=== PATIENT | male | born 1970 | race Caucasian/White ===

== ENCOUNTER 2017-06-15 16:15 | Inpatient (IN) | payer MEDICAID ==
[2017-06-15] MEDS ORDERED: Sodium Chloride 0.9% 1,000 ML IV STA (16:37)
--- NOTE | 2017-06-15 16:48 | ED PDOC ---
HPI: Male Pain Time Seen by Provider: 06/15/17 16:29 Chief Complaint (Nursing): Abdominal Pain Chief Complaint (Provider): Pelvic Pain History Per: Patient History/Exam Limitations: no limitations Onset/Duration Of Symptoms: Days (x 6), Worse Since Current Symptoms Are (Timing): Still Present Quality Of Discomfort: Sharp ("sometimes"), Pressure Associated Symptoms: Fever, Chills, Nausea. denies: Vomiting, Diarrhea, Constipation, Urinary Symptoms Additional Complaint(s): 47 y/o male presents to the ED complaining of pelvic pain that started 6 days ago, and has been increasing since onset. Patient describes pain as pressure- like and sometimes sharp, radiating to the bilateral flank and down testicular area. The pain worsens if hes sitting and when he urinates. Patient reports nausea, subjective fever, chills, and sweats, but denies hematuria, diarrhea, or constipation. He has a history of kidney stone 5-6 years ago, but states that it did not present like this. He passed the stone without any further treatment necessary. He has not taken anything for the pain. PMD: Jhon Payne Past Medical History Reviewed: Historical Data, Nursing Documentation, Vital Signs Vital Signs: Last Vital Signs Temp 100.1 F H 06/15/17 16:22 Pulse 80 06/15/17 16:22 Resp 18 06/15/17 16:22 BP 139/87 06/15/17 16:22 Pulse Ox 96 06/15/17 16:22 - Medical History PMH: HTN Denies: Chronic Kidney Disease - Surgical History Surgical History: No Surg Hx - Family History Family History: States: Hypertension - Social History Current smoker - smoking cessation education provided: No - Home Medications Home Medications: Ambulatory Orders Medication Instructions Recorded Lisinopril 10 mg PO DAILY 10/30/14 Alprazolam 0.5 mg PO BID PRN 10/31/14 Ergocalciferol (Vitamin D2) 50,000 unit PO Q7D 10/31/14 [Vitamin D] - Allergies Allergies/Adverse Reactions: Allergies Allergy/AdvReac Type Severity Reaction Status Date / Time No Known Allergies Allergy Verified 10/30/14 11:38 Review of Systems ROS Statement: Except As Marked, All Systems Reviewed And Found Negative (and as per HPI) Constitutional: Positive for: Fever (subjective), Chills, Sweats Gastrointestinal: Positive for: Nausea. Negative for: Vomiting, Diarrhea, Constipation Genitourinary Male: Positive for: Other (pelvic pain). Negative for: Hematuria Physical Exam - Reviewed Nursing Documentation Reviewed: Yes Vital Signs Reviewed: Yes - Physical Exam Appears: Positive for: Non-toxic, In Acute Distress Head Exam: Positive for: ATRAUMATIC, NORMOCEPHALIC Skin: Positive for: Warm, Dry Eye Exam: Positive for: EOMI, PERRL ENT: Negative for: Pharyngeal Erythema, Tonsillar Exudate Neck: Positive for: Painless ROM, Supple Cardiovascular/Chest: Positive for: Regular Rate, Rhythm. Negative for: Murmur Respiratory: Positive for: Normal Breath Sounds. Negative for: Respiratory Distress Gastrointestinal/Abdominal: Positive for: Bowel Sounds, Soft, Tenderness ( suprapubic and BLQ). Negative for: Mass, Distended, Guarding, Rebound Back: Negative for: L CVA Tenderness, R CVA Tenderness - Laboratory Results Result Diagrams: 06/15/17 16:58 06/15/17 16:58 - ECG O2 Sat by Pulse Oximetry: 96 (RA) Pulse Ox Interpretation: Normal Medical Decision Making Medical Decision Making: Time: 16:37 Initial Impression: Pelvic pain Differential: renal calculus, cystitis, pyelonephritis, colitis, sepsis Initial Plan: --Blood gas --CMP --Urine dipstick --Flomax --Toradol IV --Tylenol --Blood culture --Urine culture --Urinalysis --CT Abdomen/Pelvis CT Abdomen/Pelvis FINDINGS: LOWER THORAX: Unremarkable. LIVER: Liver shows no evidence of focal mass or intrahepatic ductal dilatation. GALLBLADDER AND BILE DUCTS: Unremarkable. PANCREAS: Unremarkable. No gross lesion or ductal dilatation. SPLEEN: Unremarkable. ADRENALS: Unremarkable. No mass. KIDNEYS AND URETERS: Kidneys show no evidence of hydronephrosis or calculus. Mild chronic appearing perinephric changes are appreciated. No ureteral calculus is seen. VASCULATURE: Unremarkable. No aortic aneurysm. BOWEL: There is evidence of moderate diverticulitis of the sigmoid colon with a large area of posterior round inflammatory change with multiple air bubbles identified. Findings suggest micro perforation and early abscess formation. The area of phlegmon and air bubbles measures 5.9 centimeters by 4.2 centimeters by 4 centimeters. There is additionally some inflammatory stranding along the left lateral lower pelvis. No other inflammatory process is seen in the colon. Bladder is otherwise unremarkable. APPENDIX: Unremarkable. Normal appendix. PERITONEUM: There is some mild inflammatory stranding identified in portions of the mesenteric inferiorly. No ascites is seen. LYMPH NODES: A few small scattered pelvic lymph nodes are seen. No retroperitoneal adenopathy is noted. BLADDER: Unremarkable. REPRODUCTIVE: Unremarkable. BONES: Mild degenerative changes are seen in the lower lumbar spine region, greatest at L3-4 with there is disc bulging and spurring noted. OTHER FINDINGS: None. IMPRESSION: Moderate sigmoid colon diverticulitis with associated phlegmon and multiple loculated air bubbles extending posteriorly into the central pelvis. This would suggest early abscess formation. No free intraperitoneal air appreciated. DW pt findings. Pt still has pain and additional morphine ordered. Labs demonstrate elevated WBC. With elevated temp, this is c/w early sepsis but not severe sepsis. LAUREANO Razo admitting for PMD Dr Elmer Spencer Surgery and Dr Rivera Backend Tester. LAUREANO pt plan of care. Scribe Attestation: Documented by Clifton Kamara, acting as a scribe for Ashlyn Fry MD Provider Scribe Attestation: All medical record entries made by the Scribe were at my direction and personally dictated by me. I have reviewed the chart and agree that the record accurately reflects my personal performance of the history, physical exam, medical decision making, and the department course for this patient. I have also personally directed, reviewed, and agree with the discharge instructions and disposition. Disposition - Clinical Impression Clinical Impression: Diverticulitis large intestine Counseled Patient/Family Regarding: Studies Performed, Diagnosis - Disposition Disposition Time: 18:00 Condition: FAIR Forms: [employer] (Turkmen) - Pt Status Changed To: Hospital Disposition Of: Inpatient - Admit Certification Admit to Inpatient:: After my assessment, the patient will require hospitalization for at least two midnights. This is because of the severity of symptoms shown, intensity of services needed, and/or the medical risk in this patient being treated as an outpatient. - POA Present On Arrival: None
[2017-06-15 17:02] LABS: BASO % 0.4 % (0.0-2.0); EOS % 0.2 % (0.0-4.0); HEMATOCRIT 42.3 % (35.0-51.0); LYMPH # 0.9 K/uL (1.0-4.3); LYMPH % 7.3 % (20.0-40.0); MEAN CELL VOLUME 93.3 fl (80.0-94.0); MEAN CORPUSCULAR HGB CONC 33.3 g/dL (33.0-37.0); MEAN PLATELET VOLUME 9.8 fl (7.2-11.7); MONO # 1.2 K/uL (0.0-0.8); MONO % 9.6 % (0.0-10.0); NEUT # 10.6 K/uL (1.8-7.0); NEUT % 82.5 % (50.0-75.0); NRBC % 0.1 % (0.0-0.0); PLATELET COUNT 143 K/uL (130-400); RED CELL DISTRIBUTION WIDTH 12.7 % (11.5-14.5); WHITE BLOOD COUNT 12.9 K/uL (4.8-10.8)
[2017-06-15 17:12] LABS: VENOUS BLOOD GAS BASE EXCESS 0.8 mmol/L (0.0-2.0); VENOUS BLOOD GAS PCO2 43 mmHg (40-60); VENOUS BLOOD PH 7.39 (7.32-7.43)
[2017-06-15 17:13] LABS: ALB/GLOB RATIO 1.3 (1.0-2.1); ALKALINE PHOSPHATASE 102 U/L (38-126); ALT/SGPT 50 U/L (21-72); AST/SGOT 34 U/L (17-59); BILIRUBIN,TOTAL 1.1 mg/dl (0.2-1.3); BLOOD UREA NITROGEN 12 mg/dl (9-20); CALCIUM 9.1 mg/dL (8.4-10.2); CARBON DIOXIDE 23 mmol/L (22-30); CHLORIDE 103 mmol/L (98-107); GFR AFRICAN-AMERICAN > 60; GLUCOSE,RANDOM 108 mg/dL (75-110); POTASSIUM 3.7 MMOL/L (3.6-5.0); SODIUM 143 mmol/l (132-148)
[2017-06-15 17:21] LABS: RBC URINE 4 /hpf (0-3); URINE BACTERIA RARE (<OCC); URINE BILIRUBIN NEGATIVE (NEGATIVE); URINE BLOOD MODERATE (NEGATIVE); URINE CALCIUM OXALATE CRYSTALS OCC /hpf (<OCC); URINE COLOR AMBER (YELLOW); URINE GLUCOSE (UA) NEG (Normal); URINE KETONE 20 mg/dL (NEGATIVE); URINE LEUKOCYTE ESTERASE NEG Leu/uL (Negative); URINE PROTEIN 30 mg/dL (NEGATIVE); URINE UROBILINOGEN 0.2-1.0 mg/dL (0.2-1.0); WBC URINE 2 /hpf (0-5)
[2017-06-15 17:26] LABS: NEUTROPHIL 80 % (42-75); TOTAL CELLS COUNTED 100
[2017-06-15] MEDS ORDERED: Piperacillin/Tazobact 3.375 GM in Sodium Chloride 0.9% 100 ML IV STA (17:38)
[2017-06-15] MEDS ORDERED: Piperacillin/Tazobact 3.375 gm Inj IVPB ONE (17:42)
--- NOTE | 2017-06-15 17:45 | CT ---
PROCEDURE: CT Abdomen and Pelvis without intravenous contrast HISTORY: pelvic pain radiating to bilateral flank h/o stone COMPARISON: None. TECHNIQUE: Technique. Contrast Dose: No contrast was administered. Radiation dose: Total exam DLP = 1418 mGy-cm. This CT exam was performed using one or more of the following dose reduction techniques: Automated exposure control, adjustment of the mA and/or kV according to patient size, and/or use of iterative reconstruction technique. FINDINGS: LOWER THORAX: Unremarkable. LIVER: Liver shows no evidence of focal mass or intrahepatic ductal dilatation. GALLBLADDER AND BILE DUCTS: Unremarkable. PANCREAS: Unremarkable. No gross lesion or ductal dilatation. SPLEEN: Unremarkable. ADRENALS: Unremarkable. No mass. KIDNEYS AND URETERS: Kidneys show no evidence of hydronephrosis or calculus. Mild chronic appearing perinephric changes are appreciated. No ureteral calculus is seen. VASCULATURE: Unremarkable. No aortic aneurysm. BOWEL: There is evidence of moderate diverticulitis of the sigmoid colon with a large area of posterior round inflammatory change with multiple air bubbles identified. Findings suggest micro perforation and early abscess formation. The area of phlegmon and air bubbles measures 5.9 centimeters by 4.2 centimeters by 4 centimeters. There is additionally some inflammatory stranding along the left lateral lower pelvis. No other inflammatory process is seen in the colon. Bladder is otherwise unremarkable. APPENDIX: Unremarkable. Normal appendix. PERITONEUM: There is some mild inflammatory stranding identified in portions of the mesenteric inferiorly. No ascites is seen. LYMPH NODES: A few small scattered pelvic lymph nodes are seen. No retroperitoneal adenopathy is noted. BLADDER: Unremarkable. REPRODUCTIVE: Unremarkable. BONES: Mild degenerative changes are seen in the lower lumbar spine region, greatest at L3-4 with there is disc bulging and spurring noted. OTHER FINDINGS: None. IMPRESSION: Moderate sigmoid colon diverticulitis with associated phlegmon and multiple loculated air bubbles extending posteriorly into the central pelvis. This would suggest early abscess formation. No free intraperitoneal air appreciated.
--- NOTE | 2017-06-15 19:43 | CP.PCM.CON ---
History of Present Illness - History of Present Illness History of Present Illness: General Surgery Consult Re: Diverticulitis with phlegmon HPI: 47M presented to ED with progressive LLQ and suprapubic pain since . Pain occasionally spreads across lower abd or down into testicles. Worse with sitting and urinating. He has never had this pain before. Last BM was small , loose, and light colored this AM. + nausea, decreased appetite, subjective fevers, night sweats. Never had colonoscopy before. PMH: HTN, Hx of nephrolithiasis PSH: Denies SH: No tobacco or drug use. Occasional EtOH All: NKDA Meds: Lisinopril Review of Systems - Review of Systems All systems: reviewed and no additional remarkable complaints except (as per HPI ) Past Patient History - Past Social History Smoking Status: Never Smoked - CARDIAC Hx Hypertension: Yes - NEUROLOGICAL Hx Neurological Disorder: No - HEENT Hx HEENT Problems: No - RENAL Hx Chronic Kidney Disease: No - ENDOCRINE/METABOLIC Hx Endocrine Disorders: No - HEMATOLOGICAL/ONCOLOGICAL Hx Blood Disorders: No - INTEGUMENTARY Hx Dermatological Problems: No - MUSCULOSKELETAL/RHEUMATOLOGICAL Hx Musculoskeletal Disorders: No - GASTROINTESTINAL Hx Gastrointestinal Disorders: No - GENITOURINARY/GYNECOLOGICAL Hx Genitourinary Disorders: No - PSYCHIATRIC Hx Psychophysiologic Disorder: No Hx Substance Use: No - SURGICAL HISTORY Hx Surgeries: No - ANESTHESIA Hx Anesthesia: No Meds Allergies/Adverse Reactions: Allergies Allergy/AdvReac Type Severity Reaction Status Date / Time No Known Allergies Allergy Verified 10/30/14 11:38 Physical Exam - Constitutional Appears: Non-toxic, No Acute Distress - Head Exam Head Exam: ATRAUMATIC, NORMOCEPHALIC - Eye Exam Eye Exam: EOMI. absent: Scleral icterus - ENT Exam ENT Exam: Mucous Membranes Dry Additional comments: trachea midline - Respiratory Exam Respiratory Exam: NORMAL BREATHING PATTERN. absent: Respiratory Distress - Cardiovascular Exam Cardiovascular Exam: RRR. absent: JVD - GI/Abdominal Exam GI & Abdominal Exam: Soft, Tenderness (LLQ > suprapubic > RLQ). absent: Distended, Firm, Guarding, Hernia, Rebound, Rigid - Rectal Exam Rectal Exam: Deferred - Extremities Exam Extremities exam: Negative for: calf tenderness, pedal edema - Back Exam Back exam: absent: CVA tenderness (L), CVA tenderness (R) - Neurological Exam Neurological exam: Alert, Oriented x3 - Psychiatric Exam Psychiatric exam: Normal Affect, Normal Mood - Skin Skin Exam: Dry, Warm Results - Vital Signs Recent Vital Signs: Last Vital Signs Temp 98.3 F 06/15/17 18:45 Pulse 75 06/15/17 18:45 Resp 88 H 06/15/17 18:45 BP 132/80 06/15/17 18:45 Pulse Ox 96 06/15/17 18:46 - Labs Result Diagrams: 06/15/17 16:58 06/15/17 16:58 Labs: Laboratory Results - last 24 hr 06/15/17 06/15/17 06/15/17 16:58 16:58 16:58 WBC 12.9 H RBC 4.53 Hgb 14.1 Hct 42.3 MCV 93.3 MCH 31.0 MCHC 33.3 RDW 12.7 Plt Count 143 MPV 9.8 Neut % (Auto) 82.5 H Lymph % (Auto) 7.3 L [place] % (Auto) 9.6 Eos % (Auto) 0.2 Baso % (Auto) 0.4 Neut # 10.6 H Lymph # 0.9 L [place] # 1.2 H Eos # 0.0 Baso # 0.0 Neutrophils % (Manual) 80 H Band Neutrophils % 1 Lymphocytes % (Manual) 9 L Monocytes % (Manual) 10 Platelet Estimate Normal pO2 VBG pH VBG pCO2 VBG HCO3 VBG Total CO2 VBG O2 Sat (Calc) VBG Base Excess VBG Potassium Glucose Lactate FiO2 Sodium 143 Potassium 3.7 Chloride 103 Carbon Dioxide 23 Anion Gap 20 BUN 12 Creatinine 0.7 L Est GFR ( Amer) > 60 Est GFR (Non-Af Amer) > 60 Random Glucose 108 Calcium 9.1 Total Bilirubin 1.1 AST 34 ALT 50 Alkaline Phosphatase 102 Total Protein 8.0 Albumin 4.4 Globulin 3.5 Albumin/Globulin Ratio 1.3 Venous Blood Potassium Urine Color Nadine Urine Clarity Cloudy Urine pH 6.0 Ur Specific [place] 1.030 Urine Protein 30 Urine Glucose (UA) Neg Urine Ketones 20 Urine Blood Moderate Urine Nitrate Negative Urine Bilirubin Negative Urine Urobilinogen 0.2-1.0 Ur Leukocyte Esterase Neg Urine RBC (Auto) 4 H Urine Microscopic WBC 2 Ur Squamous Epith Cells < 1 Calcium Oxalate Crystal Occ H Urine Bacteria Rare 06/15/17 17:02 WBC RBC Hgb Hct MCV MCH MCHC RDW Plt Count MPV Neut % (Auto) Lymph % (Auto) [place] % (Auto) Eos % (Auto) Baso % (Auto) Neut # Lymph # [place] # Eos # Baso # Neutrophils % (Manual) Band Neutrophils % Lymphocytes % (Manual) Monocytes % (Manual) Platelet Estimate pO2 31 VBG pH 7.39 VBG pCO2 43 VBG HCO3 24.5 VBG Total CO2 27.3 VBG O2 Sat (Calc) 64.6 VBG Base Excess 0.8 VBG Potassium 3.7 Glucose 106 Lactate 1.0 FiO2 21.0 Sodium 139.0 Potassium Chloride 101.0 Carbon Dioxide Anion Gap BUN Creatinine Est GFR ( Amer) Est GFR (Non-Af Amer) Random Glucose Calcium Total Bilirubin AST ALT Alkaline Phosphatase Total Protein Albumin Globulin Albumin/Globulin Ratio Venous Blood Potassium 3.7 Urine Color Urine Clarity Urine pH Ur Specific [place] Urine Protein Urine Glucose (UA) Urine Ketones Urine Blood Urine Nitrate Urine Bilirubin Urine Urobilinogen Ur Leukocyte Esterase Urine RBC (Auto) Urine Microscopic WBC Ur Squamous Epith Cells Calcium Oxalate Crystal Urine Bacteria - Imaging and Cardiology CT scan - abdomen Status: Image reviewed by me, Report reviewed by me Assessment & Plan - Assessment and Plan (Free Text) Assessment: 47M with diverticulitis and phlegmon Plan: Continue zosyn IVF Analgesia PRN NPO Monitor for BMs Serial abd exams D/W Dr. Johanna Rivera PGY4
[2017-06-15] MEDS ORDERED: HYDROmorphone 0.5 mg/0.5 ml ISec IVP PRN (19:46)
[2017-06-15] MEDS: Ciprofloxacin 400mg/200ml D5W 400 MG/200 ML BAG IVPB SCH (21:16)
[2017-06-15] MEDS ORDERED: Pneumococcal 23-Valent Vaccine IM ONE (22:00)
[2017-06-16 06:34] LABS: HEMATOCRIT 37.4 % (35.0-51.0); MEAN CELL VOLUME 92.9 fl (80.0-94.0); MEAN CORPUSCULAR HEMOGLOBIN 32.2 pg (27.0-31.0); MEAN CORPUSCULAR HGB CONC 34.7 g/dL (33.0-37.0); RED CELL DISTRIBUTION WIDTH 12.8 % (11.5-14.5)
[2017-06-16 06:41] LABS: ALB/GLOB RATIO 1.1 (1.0-2.1); ALKALINE PHOSPHATASE 77 U/L (38-126); ALT/SGPT 44 U/L (21-72); AST/SGOT 27 U/L (17-59); BLOOD UREA NITROGEN 7 mg/dl (9-20); CALCIUM 8.6 mg/dL (8.4-10.2); CARBON DIOXIDE 26 mmol/L (22-30); CHLORIDE 105 mmol/L (98-107); GFR AFRICAN-AMERICAN > 60; GLUCOSE,RANDOM 117 mg/dL (75-110); POTASSIUM 3.2 MMOL/L (3.6-5.0); SODIUM 143 mmol/l (132-148); TOTAL PROTEIN 6.6 G/DL (6.3-8.2)
[2017-06-16] MEDS: Ciprofloxacin 400mg/200ml D5W 400 MG/200 ML BAG IVPB SCH ×2 (08:45→20:36)
[2017-06-16] MEDS ORDERED: Influenza Vaccine 18yr & older 0.5 ML/45 MCG SYR IM ONE (09:00)
--- NOTE | 2017-06-16 09:24 | CP.PCM.PN ---
Subjective - Date & Time of Evaluation Date of Evaluation: 06/16/17 Time of Evaluation: 09:22 - Subjective Subjective: Surgery: Dr. Spencer Patient reports feeling better today. Pain much less than yesterday. He denies f /c/n/v. He denies flatus or BM. He denies appetite. He has not been out of bed. Per nursing no acute events overnight. Objective - Vital Signs/Intake and Output Vital Signs (last 24 hours): Temp Pulse Resp BP Pulse Ox 98.7 F 76 18 136/73 96 06/16/17 07:27 06/16/17 07:27 06/16/17 07:27 06/16/17 07:27 06/16/17 07:27 - Medications Medications: Current Medications Acetaminophen (Tylenol 325mg Tab) 650 mg PO Q4 PRN PRN Reason: fever (t>100.4) Hydromorphone HCl (Dilaudid) 1 mg IVP Q4 PRN PRN Reason: pain (1-10) Dextrose (Dextrose 5% In Water) 1,000 mls @ 80 mls/hr IV .[id number] [facility] Stop: 06/16/17 19:46 Last Admin: 06/16/17 08:47 Dose: Not Given Ciprofloxacin (Cipro 400mg/200ml Dsw) 400 mg in 200 mls @ 200 mls/hr IVPB Q12 [facility] Last Admin: 06/16/17 08:45 Dose: 200 mls/hr Metronidazole (Flagyl) 500 mg PO Q8 [facility] Last Admin: 06/16/17 08:45 Dose: 500 mg Ondansetron HCl (Zofran Inj) 4 mg IVP Q4 PRN PRN Reason: Nausea/Vomiting Pantoprazole Sodium (Protonix Inj) 40 mg IVP DAILY [facility] Last Admin: 06/16/17 08:45 Dose: 40 mg - Labs Labs: 06/16/17 05:25 06/16/17 05:25 - Constitutional Appears: Non-toxic, No Acute Distress - Head Exam Head Exam: ATRAUMATIC, NORMOCEPHALIC - Eye Exam Eye Exam: EOMI, Normal appearance - ENT Exam ENT Exam: Mucous Membranes Moist - Respiratory Exam Respiratory Exam: NORMAL BREATHING PATTERN. absent: Respiratory Distress - Cardiovascular Exam Cardiovascular Exam: REGULAR RHYTHM. absent: Tachycardia - GI/Abdominal Exam GI & Abdominal Exam: Soft, Tenderness (moderately tender in suprapubic and LLQ) . absent: Distended, Guarding, Rebound - Extremities Exam Extremities Exam: Normal Inspection. absent: Calf Tenderness - Neurological Exam Neurological Exam: Alert, Awake - Skin Skin Exam: Dry, Normal Color, Warm Assessment and Plan - Assessment and Plan (Free Text) Assessment: 47 y/o male w/ diverticulitis and pericolonic phlegmon Plan: -cont NPO status until clinical exam improves -cont IVF -cont abx -recommend GI evaluation -patient will need outpatient colonoscopy once acute infection resolves -encourage OOB and IS use -d/w Dr. Johanna Giang PGY3
[2017-06-16] MEDS ORDERED: Diatriz Meglumine/Diatriz Sod 30 ML BOTTLE PO ONE (11:42)
[2017-06-16] MEDS ORDERED: metroNIDAZOLE 500mg/100ml NS 100 ML IVPB SCH (12:00)
[2017-06-16] MEDS: Potassium Chl 40 mEq in D5-1/2 1,000 ML IV SCH (14:15)
[2017-06-16] MEDS ORDERED: Iohexol 300 100 ML IJ ONE (15:40)
[2017-06-16] MEDS ORDERED: Sodium Chloride 0.9% 50 ML IV ONE ×2 (15:40→16:10)
--- NOTE | 2017-06-16 16:55 | CT ---
PROCEDURE: CT Abdomen and Pelvis with contrast HISTORY: diverticulitis COMPARISON: June 15, 2017. CT abdomen and pelvis. TECHNIQUE: Contrast dose: 95 cc Omnipaque 300 Radiation dose: Total exam DLP = 1060.91 mGy-cm. This CT exam was performed using one or more of the following dose reduction techniques: Automated exposure control, adjustment of the mA and/or kV according to patient size, and/or use of iterative reconstruction technique. FINDINGS: LOWER THORAX: Unremarkable. LIVER: Hepatic steatosis. No focal masses. No intrahepatic bile duct dilatation or perihepatic ascites. GALLBLADDER AND BILE DUCTS: Unremarkable. PANCREAS: Unremarkable. No gross lesion or ductal dilatation. SPLEEN: Unremarkable. ADRENALS: Unremarkable. No mass. KIDNEYS AND URETERS: Unremarkable. No hydronephrosis. No solid mass. VASCULATURE: Unremarkable. No aortic aneurysm. BOWEL: Stable sigmoid diverticulitis. The affected segment contains an intense inflammatory response with micro perforations the largest on the anti mesenteric border of the sigmoid measuring 2.8 x 3.3 cm and a slightly smaller phlegmonous component 1.7 x 2.6 cm. Neither of these represent a drainable collection. APPENDIX: Normal appendix. PERITONEUM: Unremarkable. No free fluid. No free air. LYMPH NODES: Unremarkable. No enlarged lymph nodes. BLADDER: Unremarkable. REPRODUCTIVE: Unremarkable. BONES: No acute fracture. No significant interval change compared to the prior examination(s). OTHER FINDINGS: None. IMPRESSION: Stable severe acute sigmoid diverticulitis. Phlegmonous components of [place] years delineated on this contrast-enhanced component. Micro perforations identified. No free air or significant free fluid identified
[2017-06-16] MEDS ORDERED: Simethicone 80 mg Chewtab PO PRN (19:29)
[2017-06-17] MEDS: Potassium Chl 40 mEq in D5-1/2 1,000 ML IV SCH ×2 (03:18→09:37)
--- NOTE | 2017-06-17 08:34 | CP.PCM.PN ---
Subjective - Date & Time of Evaluation Date of Evaluation: 06/17/17 Time of Evaluation: 07:30 - Subjective Subjective: General Surgery Pt S&E, NAEO. Afebrile. + loose BM yesterday. Ambulating. Pain improved from yesterday. Objective - Vital Signs/Intake and Output Vital Signs (last 24 hours): Temp Pulse Resp BP Pulse Ox 98.8 F 57 L 20 135/81 98 06/17/17 07:56 06/17/17 07:56 06/17/17 07:56 06/17/17 07:56 06/17/17 07:56 - Medications Medications: Current Medications Acetaminophen (Tylenol 650 Mg Supp) 650 mg [place] Q6 PRN PRN Reason: Fever >100.4 F Hydromorphone HCl (Dilaudid) 1 mg IVP Q4 PRN PRN Reason: pain (1-10) Ciprofloxacin (Cipro 400mg/200ml Dsw) 400 mg in 200 mls @ 200 mls/hr IVPB Q12 [facility] Last Admin: 06/16/17 20:36 Dose: 200 mls/hr Potassium Chloride/Dextrose/Sod Cl (Potassium Chl 40 Meq In D5-1/2ns) 1,000 mls @ 90 mls/hr IV .Q11H7M [facility] Stop: 06/17/17 11:51 Last Admin: 06/17/17 03:18 Dose: 90 mls/hr Metronidazole (Flagyl) 500 mg PO Q8 [facility] Last Admin: 06/17/17 01:03 Dose: 500 mg Ondansetron HCl (Zofran Inj) 4 mg IVP Q4 PRN PRN Reason: Nausea/Vomiting Pantoprazole Sodium (Protonix Inj) 40 mg IVP DAILY [facility] Last Admin: 06/16/17 08:45 Dose: 40 mg Simethicone (Mylicon Chew Tab) 80 mg PO [facility] PRN PRN Reason: Flatulence Last Admin: 06/16/17 20:35 Dose: 80 mg - Labs Labs: 06/16/17 05:25 06/16/17 05:25 - Constitutional Appears: Non-toxic, No Acute Distress - Head Exam Head Exam: ATRAUMATIC, NORMOCEPHALIC - Eye Exam Eye Exam: EOMI. absent: Scleral icterus - Respiratory Exam Respiratory Exam: NORMAL BREATHING PATTERN. absent: Respiratory Distress - GI/Abdominal Exam GI & Abdominal Exam: Soft, Tenderness (mild in LLQ and suprapubic region). absent: Distended, Firm, Guarding, Rigid - Neurological Exam Neurological Exam: Alert, Awake - Skin Skin Exam: Dry, Warm Assessment and Plan - Assessment and Plan (Free Text) Assessment: 47M w/ diverticulitis and pericolonic phlegmon Plan: F/U WBC Pain control PRN Cont IVF Cont abx Rec. GI evaluation as patient will need outpt colonoscopy Encourage ambulation and IS use Will D/W Dr. Johanna Rivera PGY4
[2017-06-17 08:44] LABS: HEMATOCRIT 37.9 % (35.0-51.0); MEAN CELL VOLUME 91.8 fl (80.0-94.0); MEAN CORPUSCULAR HGB CONC 34.8 g/dL (33.0-37.0); RED CELL DISTRIBUTION WIDTH 12.7 % (11.5-14.5); WHITE BLOOD COUNT 10.7 K/uL (4.8-10.8)
[2017-06-17 09:05] LABS: BLOOD UREA NITROGEN 5 mg/dl (9-20); CALCIUM 8.8 mg/dL (8.4-10.2); CARBON DIOXIDE 25 mmol/L (22-30); CHLORIDE 106 mmol/L (98-107); GFR AFRICAN-AMERICAN > 60; GLUCOSE,RANDOM 127 mg/dL (75-110); POTASSIUM 3.8 MMOL/L (3.6-5.0); SODIUM 144 mmol/l (132-148)
[2017-06-17] MEDS: Ciprofloxacin 400mg/200ml D5W 400 MG/200 ML BAG IVPB SCH ×2 (09:36→20:33)
--- NOTE | 2017-06-17 09:39 | CP.PCM.HP ---
History of Present Illness - History of Present Illness History of Present Illness: This is a 47 y/o male admitted for progressive pelvic pain for few days.. Noted to have diverticulitis on CT scan. Past Patient History - Past Medical History & Family History Past Medical History?: Yes - Past Social History Smoking Status: Never Smoked - CARDIAC Hx Hypertension: Yes - NEUROLOGICAL Hx Neurological Disorder: No - HEENT Hx HEENT Problems: No - RENAL Hx Chronic Kidney Disease: No Hx Kidney Stones: Yes - ENDOCRINE/METABOLIC Hx Endocrine Disorders: No - HEMATOLOGICAL/ONCOLOGICAL Hx Blood Disorders: No - INTEGUMENTARY Hx Dermatological Problems: No - MUSCULOSKELETAL/RHEUMATOLOGICAL Hx Falls: No - GASTROINTESTINAL Hx Gastrointestinal Disorders: No - GENITOURINARY/GYNECOLOGICAL Hx Genitourinary Disorders: No - PSYCHIATRIC Hx Substance Use: No - SURGICAL HISTORY Hx Surgeries: No - ANESTHESIA Hx Anesthesia: No Meds Allergies/Adverse Reactions: Allergies Allergy/AdvReac Type Severity Reaction Status Date / Time No Known Allergies Allergy Verified 10/30/14 11:38 Results - Vital Signs Recent Vital Signs: Last Vital Signs Temp 98.8 F 06/17/17 07:56 Pulse 57 L 06/17/17 07:56 Resp 20 06/17/17 07:56 BP 135/81 06/17/17 07:56 Pulse Ox 98 06/17/17 07:56 - Labs Result Diagrams: 06/17/17 08:30 06/17/17 08:30 Labs: Laboratory Results - last 24 hr 06/17/17 06/17/17 08:30 08:30 WBC 10.7 RBC 4.13 L Hgb 13.2 Hct 37.9 MCV 91.8 MCH 32.0 H MCHC 34.8 RDW 12.7 Plt Count 152 Sodium 144 Potassium 3.8 Chloride 106 Carbon Dioxide 25 Anion Gap 16 BUN 5 L Creatinine 0.6 L Est GFR ( Amer) > 60 Est GFR (Non-Af Amer) > 60 Random Glucose 127 H Calcium 8.8
--- NOTE | 2017-06-17 09:41 | CP.PCM.PN ---
Subjective - Date & Time of Evaluation Date of Evaluation: 06/16/17 Time of Evaluation: 09:30 - Subjective Subjective: Patient contiues to have tenderness on the lower abd area/pelvic area. CT showed possible microperfoation. Objective - Vital Signs/Intake and Output Vital Signs (last 24 hours): Temp Pulse Resp BP Pulse Ox 98.8 F 57 L 20 135/81 98 06/17/17 07:56 06/17/17 07:56 06/17/17 07:56 06/17/17 07:56 06/17/17 07:56 - Medications Medications: Current Medications Acetaminophen (Tylenol 650 Mg Supp) 650 mg [place] Q6 PRN PRN Reason: Fever >100.4 F Hydromorphone HCl (Dilaudid) 1 mg IVP Q4 PRN PRN Reason: pain (1-10) Ciprofloxacin (Cipro 400mg/200ml Dsw) 400 mg in 200 mls @ 200 mls/hr IVPB Q12 [facility] Last Admin: 06/17/17 09:36 Dose: 200 mls/hr Potassium Chloride/Dextrose/Sod Cl (Potassium Chl 40 Meq In D5-1/2ns) 1,000 mls @ 90 mls/hr IV .Q11H7M [facility] Stop: 06/17/17 11:51 Last Admin: 06/17/17 09:37 Dose: Not Given Metronidazole (Flagyl) 500 mg PO Q8 [facility] Last Admin: 06/17/17 09:37 Dose: 500 mg Ondansetron HCl (Zofran Inj) 4 mg IVP Q4 PRN PRN Reason: Nausea/Vomiting Pantoprazole Sodium (Protonix Inj) 40 mg IVP DAILY [facility] Last Admin: 06/17/17 09:37 Dose: 40 mg Simethicone (Mylicon Chew Tab) 80 mg PO [facility] PRN PRN Reason: Flatulence Last Admin: 06/16/17 20:35 Dose: 80 mg - Labs Labs: 06/17/17 08:30 06/17/17 08:30
--- NOTE | 2017-06-17 11:16 | CP.PCM.PN ---
Subjective - Date & Time of Evaluation Date of Evaluation: 06/17/17 Time of Evaluation: 11:15 - Subjective Subjective: Patient claims to have less tenderness on the pelvic area Has no fever and WBC has gone down to normal. Has no chest pain or SOB. Objective - Vital Signs/Intake and Output Vital Signs (last 24 hours): Temp Pulse Resp BP Pulse Ox 98.8 F 57 L 20 135/81 98 06/17/17 07:56 06/17/17 07:56 06/17/17 07:56 06/17/17 07:56 06/17/17 07:56 - Medications Medications: Current Medications Acetaminophen (Tylenol 650 Mg Supp) 650 mg DE Q6 PRN PRN Reason: Fever >100.4 F Hydromorphone HCl (Dilaudid) 1 mg IVP Q4 PRN PRN Reason: pain (1-10) Ciprofloxacin (Cipro 400mg/200ml Dsw) 400 mg in 200 mls @ 200 mls/hr IVPB Q12 [facility] Last Admin: 06/17/17 09:36 Dose: 200 mls/hr Potassium Chloride/Dextrose/Sod Cl (Potassium Chl 40 Meq In D5-1/2ns) 1,000 mls @ 90 mls/hr IV .Q11H7M [facility] Stop: 06/17/17 11:51 Last Admin: 06/17/17 09:37 Dose: Not Given Metronidazole (Flagyl) 500 mg PO Q8 [facility] Last Admin: 06/17/17 09:37 Dose: 500 mg Ondansetron HCl (Zofran Inj) 4 mg IVP Q4 PRN PRN Reason: Nausea/Vomiting Pantoprazole Sodium (Protonix Inj) 40 mg IVP DAILY [facility] Last Admin: 06/17/17 09:37 Dose: 40 mg Simethicone (Mylicon Chew Tab) 80 mg PO PCHS PRN PRN Reason: Flatulence Last Admin: 06/16/17 20:35 Dose: 80 mg - Labs Labs: 06/17/17 08:30 06/17/17 08:30
--- NOTE | 2017-06-17 22:31 | CON ---
DATE OF SERVICE: 06/17/2017 REFERRING PHYSICIAN: Alberto Razo M.D. REASON FOR CONSULTATION: Abdominal pain. HISTORY OF PRESENT ILLNESS: This is a very pleasant 47-year-old man who comes in for 3 to 4 days of left lower quadrant pain and discomfort, some questionable fever and chills. No diarrhea. No sick contact. No recent travel. Currently, walking around, in no apparent distress. PAST MEDICAL HISTORY: As above. PAST SURGICAL HISTORY: As above. MEDICATIONS: Have been reviewed. REVIEW OF SYSTEMS: All other systems have been reviewed and negative apart from the HPI. PHYSICAL EXAMINATION: GENERAL: A pleasant middle-aged man, lying in bed, comfortable, in no apparent distress. VITAL SIGNS: In the hospital, grossly unremarkable. HEENT: Head, normocephalic, atraumatic. Eyes, pupils are equal, round, and reactive to light bilaterally. No conjunctival pallor or icterus. NECK: Supple. Normal range of motion. No lymphadenopathy appreciated. LUNGS: Coarse breath sounds bilaterally. HEART: S1 and S2, regular rate and rhythm. No murmurs appreciated. ABDOMEN: Soft. Some discomfort in the left lower quadrant. No rebound. No guarding. RECTAL: Deferred. EXTREMITIES: Pulses felt bilaterally. SKIN: Warm, dry, and intact. NEUROLOGIC: A and O x3. LABORATORY DATA: All labs and relevant radiology have been reviewed. Radiology includes a CAT scan that shows diverticulitis of the sigmoid with microperforation. WBC is down to 10.7 from 12.9, hemoglobin stable at 13.2, platelet count is 152, ESR 61. ASSESSMENT AND PLAN: This is a 47-year-old man with diverticulitis and microperforation. From gastrointestinal standpoint, the patient is already on clear liquid diet and doing well, antibiotics for a total of 14 days, will need a colonoscopy no sooner than 6 to 8 weeks, advance diet slowly, pain control as needed. Thank you for the consult. Daniel German MD/ PhD CC: Alberto Razo M.D.
--- NOTE | 2017-06-18 08:46 | CP.PCM.PN ---
Subjective - Date & Time of Evaluation Date of Evaluation: 06/18/17 Time of Evaluation: 07:00 - Subjective Subjective: General Surgery Pt S&E, NAEO. Denies pain today. Tolerated liquids. Ambulating, feeling better. Objective - Vital Signs/Intake and Output Vital Signs (last 24 hours): Temp Pulse Resp BP Pulse Ox 97.4 F L 65 19 124/71 93 L 06/18/17 07:38 06/18/17 07:38 06/18/17 07:38 06/18/17 07:38 06/18/17 07:38 - Medications Medications: Current Medications Acetaminophen (Tylenol 650 Mg Supp) 650 mg [place] Q6 PRN PRN Reason: Fever >100.4 F Hydromorphone HCl (Dilaudid) 1 mg IVP Q4 PRN PRN Reason: pain (1-10) Ciprofloxacin (Cipro 400mg/200ml Dsw) 400 mg in 200 mls @ 200 mls/hr IVPB Q12 [facility] Last Admin: 06/17/17 20:33 Dose: 200 mls/hr Lisinopril (Zestril) 10 mg PO DAILY [facility] Last Admin: 06/17/17 17:50 Dose: 10 mg Metronidazole (Flagyl) 500 mg PO Q8 [facility] Last Admin: 06/18/17 00:13 Dose: 500 mg Ondansetron HCl (Zofran Inj) 4 mg IVP Q4 PRN PRN Reason: Nausea/Vomiting Pantoprazole Sodium (Protonix Inj) 40 mg IVP DAILY [facility] Last Admin: 06/17/17 09:37 Dose: 40 mg Simethicone (Mylicon Chew Tab) 80 mg PO HS PRN PRN Reason: Flatulence Last Admin: 06/16/17 20:35 Dose: 80 mg - Labs Labs: 06/17/17 08:30 06/17/17 08:30 - Constitutional Appears: Non-toxic, No Acute Distress - Head Exam Head Exam: ATRAUMATIC, NORMOCEPHALIC - Eye Exam Eye Exam: EOMI. absent: Scleral icterus - Respiratory Exam Respiratory Exam: NORMAL BREATHING PATTERN. absent: Respiratory Distress - GI/Abdominal Exam GI & Abdominal Exam: Soft. absent: Distended, Firm, Guarding, Rigid, Tenderness - Neurological Exam Neurological Exam: Alert, Awake - Skin Skin Exam: Dry, Warm Assessment and Plan - Assessment and Plan (Free Text) Assessment: 47M w/ diverticulitis and pericolonic phlegmon Plan: F/U WBC Cont abx Outpt colonoscopy per GI Encourage ambulation and IS use Advanced to low residual diet. D/W Dr. Johanna Rivera PGY4
[2017-06-18] MEDS: Ciprofloxacin 400mg/200ml D5W 400 MG/200 ML BAG IVPB SCH ×2 (09:19→20:00)
[2017-06-18 09:24] LABS: HEMATOCRIT 41.5 % (35.0-51.0); MEAN CELL VOLUME 93.3 fl (80.0-94.0); MEAN CORPUSCULAR HEMOGLOBIN 31.6 pg (27.0-31.0); MEAN CORPUSCULAR HGB CONC 33.9 g/dL (33.0-37.0); WHITE BLOOD COUNT 6.3 K/uL (4.8-10.8)
--- NOTE | 2017-06-18 10:23 | PQF GENQUE ---
This form is a permanent part of the medical record 06/18/17 Dr. Razo, AFTER WORKUP please clarify the following. The ER MD has documented the following information with no mention of this diagnosis in your documentation. Please indicate in your next progress note and /or discharge summary your agreement with ER MD or provide clarification that this diagnosis is not a current condition. Diagnosis: Labs demonstrate elevated WBC with elevated temp, this is c/w early sepsis but not severe sepsis. Admitted with pelvic pain with radiation, nausea, subjective fever, chills and sweats. WBC 12.9 with a L shift. Lactate 1.0. Urine CS < 1,000 CFU, Blood CS No growth after [address]: Acute sigmoid diverticulitis, microperforations, Temp 100.1->98.3->98.7->99.6, HR: 80, 75, 61, 68, 76, 57 BP: 139/87, 132/80, 122/78, 128/77 Treated with Cipro IV and Flagyl po. Clarification of your documentation is requested to better reflect the severity of illness and intensity of treatment of your patient. Indicators present PHYSICIAN'S RESPONSE Based on your medical judgment of the clinical indicators outlined above please clarify the following: [] Practitioner response [] If unable to determine, please check the box, sign and date. Present On Admission (POA) Indicator: [] Present at the time of admission [] Not present at the time of admission [] Clinically Undetermined In responding to this query, please exercise your independent professional judgment. The fact that a question is asked does not imply that any particular answer is desired or expected. Thank you for your clarification on this documentation. If you have any questions please call:[phone] * Thank you, Mia Daily RN CDMP MTDD
--- NOTE | 2017-06-18 13:50 | CP.PCM.PN ---
Subjective - Date & Time of Evaluation Date of Evaluation: 06/18/17 Time of Evaluation: 13:50 - Subjective Subjective: doing well Objective - Vital Signs/Intake and Output Vital Signs (last 24 hours): Temp Pulse Resp BP Pulse Ox 97.4 F L 65 19 124/71 93 L 06/18/17 07:38 06/18/17 09:19 06/18/17 07:38 06/18/17 09:19 06/18/17 07:38 - Medications Medications: Current Medications Acetaminophen (Tylenol 650 Mg Supp) 650 mg [place] Q6 PRN PRN Reason: Fever >100.4 F Hydromorphone HCl (Dilaudid) 1 mg IVP Q4 PRN PRN Reason: pain (1-10) Ciprofloxacin (Cipro 400mg/200ml Dsw) 400 mg in 200 mls @ 200 mls/hr IVPB Q12 [facility] Last Admin: 06/18/17 09:19 Dose: 200 mls/hr Lisinopril (Zestril) 10 mg PO DAILY [facility] Last Admin: 06/18/17 09:19 Dose: 10 mg Metronidazole (Flagyl) 500 mg PO Q8 [facility] Last Admin: 06/18/17 09:18 Dose: 500 mg Ondansetron HCl (Zofran Inj) 4 mg IVP Q4 PRN PRN Reason: Nausea/Vomiting Pantoprazole Sodium (Protonix Inj) 40 mg IVP DAILY [facility] Last Admin: 06/18/17 09:18 Dose: 40 mg Simethicone (Mylicon Chew Tab) 80 mg PO PCHS PRN PRN Reason: Flatulence Last Admin: 06/16/17 20:35 Dose: 80 mg - Labs Labs: 06/18/17 09:00 06/17/17 08:30 - Neck Exam Neck Exam: Normal Inspection - Respiratory Exam Respiratory Exam: NORMAL BREATHING PATTERN - Cardiovascular Exam Cardiovascular Exam: REGULAR RHYTHM - GI/Abdominal Exam GI & Abdominal Exam: Soft, Normal Bowel Sounds Assessment and Plan - Assessment and Plan (Free Text) Assessment: 47 yo male with diverticulitis abx dc planning colonoscopy in 6-8 weeks
[2017-06-19 06:26] LABS: HEMATOCRIT 39.7 % (35.0-51.0); MEAN CORPUSCULAR HEMOGLOBIN 31.6 pg (27.0-31.0); MEAN CORPUSCULAR HGB CONC 33.7 g/dL (33.0-37.0); RED CELL DISTRIBUTION WIDTH 12.8 % (11.5-14.5); WHITE BLOOD COUNT 5.9 K/uL (4.8-10.8)
[2017-06-19 08:44] VITALS: BP 121/76; RESP 18; TEMP 97.9; O2SAT 95
[2017-06-19] MEDS: Ciprofloxacin 400mg/200ml D5W 400 MG/200 ML BAG IVPB SCH (09:19)
[2017-06-19 09:32] VITALS: PULSE 62
--- NOTE | 2017-06-19 10:53 | CP.PCM.PN ---
Subjective - Date & Time of Evaluation Date of Evaluation: 06/19/17 Time of Evaluation: 10:50 - Subjective Subjective: doing well Objective - Vital Signs/Intake and Output Vital Signs (last 24 hours): Temp Pulse Resp BP Pulse Ox 97.9 F 62 18 121/76 95 06/19/17 08:44 06/19/17 09:31 06/19/17 08:44 06/19/17 09:31 06/19/17 08:44 - Medications Medications: Current Medications Acetaminophen (Tylenol 650 Mg Supp) 650 mg [place] Q6 PRN PRN Reason: Fever >100.4 F Ciprofloxacin (Cipro 400mg/200ml Dsw) 400 mg in 200 mls @ 200 mls/hr IVPB Q12 [facility] Last Admin: 06/19/17 09:19 Dose: 200 mls/hr Lisinopril (Zestril) 10 mg PO DAILY [facility] Last Admin: 06/19/17 09:31 Dose: 10 mg Metronidazole (Flagyl) 500 mg PO Q8 [facility] Last Admin: 06/19/17 09:20 Dose: 500 mg Ondansetron HCl (Zofran Inj) 4 mg IVP Q4 PRN PRN Reason: Nausea/Vomiting Pantoprazole Sodium (Protonix Inj) 40 mg IVP DAILY [facility] Last Admin: 06/19/17 09:20 Dose: 40 mg Simethicone (Mylicon Chew Tab) 80 mg PO [facility] PRN PRN Reason: Flatulence Last Admin: 06/16/17 20:35 Dose: 80 mg - Labs Labs: 06/19/17 05:40 06/17/17 08:30 - Neck Exam Neck Exam: Normal Inspection - Respiratory Exam Respiratory Exam: Clear to Ausculation Bilateral, NORMAL BREATHING PATTERN - Cardiovascular Exam Cardiovascular Exam: REGULAR RHYTHM - GI/Abdominal Exam GI & Abdominal Exam: Soft, Normal Bowel Sounds Assessment and Plan - Assessment and Plan (Free Text) Assessment: 47 yo male with diverticulitis abx dc planning colon in 6-8 weeks
--- NOTE | 2017-06-19 11:49 | CP.PCM.DIS ---
Provider - Provider Date of Admission: 06/15/17 17:43 Attending physician: Alberto Razo MD Time Spent in preparation of Discharge (in minutes): 30 Hospital Course - Lab Results Lab Results: Micro Results 06/15/17 17:30 Blood Blood Culture - Preliminary NO GROWTH AFTER 3 DAYS 06/15/17 16:58 Blood Blood Culture - Preliminary NO GROWTH AFTER 3 DAYS 06/15/17 16:58 Urine Urine Culture - Final No Growth (<1,000 CFU/ML) Most Recent Lab Values WBC 5.9 K/uL (4.8-10.8) 06/19/17 05:40 RBC 4.22 Mil/uL (4.40-5.90) L 06/19/17 05:40 Hgb 13.4 g/dL (12.0-18.0) 06/19/17 05:40 Hct 39.7 % (35.0-51.0) 06/19/17 05:40 MCV 94.0 fl (80.0-94.0) 06/19/17 05:40 MCH 31.6 pg (27.0-31.0) H 06/19/17 05:40 MCHC 33.7 g/dL (33.0-37.0) 06/19/17 05:40 RDW 12.8 % (11.5-14.5) 06/19/17 05:40 Plt Count 170 K/uL (130-400) 06/19/17 05:40 MPV 9.8 fl (7.2-11.7) 06/15/17 16:58 Neut % (Auto) 82.5 % (50.0-75.0) H 06/15/17 16:58 Lymph % (Auto) 7.3 % (20.0-40.0) L 06/15/17 16:58 [place] % (Auto) 9.6 % (0.0-10.0) 06/15/17 16:58 Eos % (Auto) 0.2 % (0.0-4.0) 06/15/17 16:58 Baso % (Auto) 0.4 % (0.0-2.0) 06/15/17 16:58 Neut # 10.6 K/uL (1.8-7.0) H 06/15/17 16:58 Lymph # 0.9 K/uL (1.0-4.3) L 06/15/17 16:58 [place] # 1.2 K/uL (0.0-0.8) H 06/15/17 16:58 Eos # 0.0 K/uL (0.0-0.7) 06/15/17 16:58 Baso # 0.0 K/uL (0.0-0.2) 06/15/17 16:58 Neutrophils % (Manual) 80 % (42-75) H 06/15/17 16:58 Band Neutrophils % 1 % (0-2) 06/15/17 16:58 Lymphocytes % (Manual) 9 % (20-50) L 06/15/17 16:58 Monocytes % (Manual) 10 % (0-10) 06/15/17 16:58 Platelet Estimate Normal (NORMAL) 06/15/17 16:58 ESR 61 mm/hr (0-15) H 06/16/17 05:25 pO2 31 mm/Hg (30-55) 06/15/17 17:02 VBG pH 7.39 (7.32-7.43) 06/15/17 17:02 VBG pCO2 43 mmHg (40-60) 06/15/17 17:02 VBG HCO3 24.5 mmol/L 06/15/17 17:02 VBG Total CO2 27.3 mmol/L (22-28) 06/15/17 17:02 VBG O2 Sat (Calc) 64.6 % (40-65) 06/15/17 17:02 VBG Base Excess 0.8 mmol/L (0.0-2.0) 06/15/17 17:02 VBG Potassium 3.7 mmol/L (3.6-5.2) 06/15/17 17:02 Sodium 139.0 mmol/L (132-148) 06/15/17 17:02 Chloride 101.0 mmol/L (98-107) 06/15/17 17:02 Glucose 106 mg/dL (75-110) 06/15/17 17:02 Lactate 1.0 mmol/L (0.7-2.1) 06/15/17 17:02 FiO2 21.0 % 06/15/17 17:02 Sodium 144 mmol/l (132-148) 06/17/17 08:30 Potassium 3.8 MMOL/L (3.6-5.0) 06/17/17 08:30 Chloride 106 mmol/L (98-107) 06/17/17 08:30 Carbon Dioxide 25 mmol/L (22-30) 06/17/17 08:30 Anion Gap 16 (10-20) 06/17/17 08:30 BUN 5 mg/dl (9-20) L 06/17/17 08:30 Creatinine 0.6 mg/dL (0.8-1.5) L 06/17/17 08:30 Est GFR ( Amer) > 60 06/17/17 08:30 Est GFR (Non-Af Amer) > 60 06/17/17 08:30 Random Glucose 127 mg/dL (75-110) H 06/17/17 08:30 Calcium 8.8 mg/dL (8.4-10.2) 06/17/17 08:30 Total Bilirubin 1.0 mg/dl (0.2-1.3) 06/16/17 05:25 AST 27 U/L (17-59) 06/16/17 05:25 ALT 44 U/L (21-72) 06/16/17 05:25 Alkaline Phosphatase 77 U/L (38-126) 06/16/17 05:25 Total Protein 6.6 G/DL (6.3-8.2) 06/16/17 05:25 Albumin 3.5 g/dL (3.5-5.0) D 06/16/17 05:25 Globulin 3.1 gm/dL (2.2-3.9) 06/16/17 05:25 Albumin/Globulin Ratio 1.1 (1.0-2.1) 06/16/17 05:25 Venous Blood Potassium 3.7 mmol/L (3.6-5.2) 06/15/17 17:02 Urine Color Nadine (YELLOW) 06/15/17 16:58 Urine Clarity Cloudy (Clear) 06/15/17 16:58 Urine pH 6.0 (5.0-8.0) 06/15/17 16:58 Ur Specific [place] 1.030 (1.003-1.030) 06/15/17 16:58 Urine Protein 30 mg/dL (NEGATIVE) 06/15/17 16:58 Urine Glucose (UA) Neg mg/dL (Normal) 06/15/17 16:58 Urine Ketones 20 mg/dL (NEGATIVE) 06/15/17 16:58 Urine Blood Moderate (NEGATIVE) 06/15/17 16:58 Urine Nitrate Negative (NEGATIVE) 06/15/17 16:58 Urine Bilirubin Negative (NEGATIVE) 06/15/17 16:58 Urine Urobilinogen 0.2-1.0 mg/dL (0.2-1.0) 06/15/17 16:58 Ur Leukocyte Esterase Neg Robel/uL (Negative) 06/15/17 16:58 Urine RBC (Auto) 4 /hpf (0-3) H 06/15/17 16:58 Urine Microscopic WBC 2 /hpf (0-5) 06/15/17 16:58 Ur Squamous Epith Cells < 1 /hpf (0-5) 06/15/17 16:58 Calcium Oxalate Crystal Occ /hpf (<OCC) H 06/15/17 16:58 Urine Bacteria Rare (<OCC) 06/15/17 16:58 - Hospital Course Hospital Course: 47 YO M who was hospitalized for pelvic pain and found to have diverticultis on CT scan. Patient has been recieving IVF and antibiotics and is doing well. Will be discharged home with oral antibiotics. F/U with PMD in 2-3 days and GI outpatient. Patient will need colonoscopy outpatient 6 weeks after discharge . Follow up with GI. Patient doing well, minimal abdominal pain, tolerating regular diet. Denies any nausea, vomiting, or diarrhea. Discharge Exam - Head Exam Head Exam: ATRAUMATIC, NORMOCEPHALIC - Eye Exam Eye Exam: Normal appearance - Respiratory Exam Respiratory Exam: Clear to PA & Lateral, NORMAL BREATHING PATTERN - Cardiovascular Exam Cardiovascular Exam: REGULAR RHYTHM, +S1, +S2 - GI/Abdominal Exam GI & Abdominal Exam: Normal Bowel Sounds, Soft. absent: Tenderness - Extremities Exam Extremities exam: normal inspection - Neurological Exam Neurological exam: Alert, CN II-XII Intact, Normal Gait, Oriented x3 - Skin Skin Exam: Dry, Warm Discharge Plan - Follow Up Plan Condition: FAIR Disposition: HOME/ ROUTINE Instructions: Metronidazole (By mouth), Ciprofloxacin (By injection), Diverticulitis (DC), Diverticulitis Diet (DC) Additional Instructions: follow up with grocery packer for colonoscopy in 6-8 weeks. Take Cipro and flagyl x 10 days. Script in chart. Referrals: Alberto Razo MD [Staff Provider] - Daniel German MD, PhD [Staff Provider] -
--- NOTE | 2017-06-19 11:50 | CP.PCM.PN ---
Subjective - Date & Time of Evaluation Date of Evaluation: 06/19/17 Time of Evaluation: 10:10 - Subjective Subjective: General Surgery Pt S&E, NAEO. Denies pain today. Tolerated diet. Ambulating, feeling better. Afebrile. Objective - Vital Signs/Intake and Output Vital Signs (last 24 hours): Temp Pulse Resp BP Pulse Ox 97.9 F 62 18 121/76 95 06/19/17 08:44 06/19/17 09:31 06/19/17 08:44 06/19/17 09:31 06/19/17 08:44 - Medications Medications: Current Medications Acetaminophen (Tylenol 650 Mg Supp) 650 mg ID Q6 PRN PRN Reason: Fever >100.4 F Ciprofloxacin (Cipro 400mg/200ml Dsw) 400 mg in 200 mls @ 200 mls/hr IVPB Q12 [facility] Last Admin: 06/19/17 09:19 Dose: 200 mls/hr Lisinopril (Zestril) 10 mg PO DAILY [facility] Last Admin: 06/19/17 09:31 Dose: 10 mg Metronidazole (Flagyl) 500 mg PO Q8 [facility] Last Admin: 06/19/17 09:20 Dose: 500 mg Ondansetron HCl (Zofran Inj) 4 mg IVP Q4 PRN PRN Reason: Nausea/Vomiting Pantoprazole Sodium (Protonix Inj) 40 mg IVP DAILY [facility] Last Admin: 06/19/17 09:20 Dose: 40 mg Simethicone (Mylicon Chew Tab) 80 mg PO [facility] PRN PRN Reason: Flatulence Last Admin: 06/16/17 20:35 Dose: 80 mg - Labs Labs: 06/19/17 05:40 06/17/17 08:30 - Constitutional Appears: Non-toxic, No Acute Distress - Head Exam Head Exam: ATRAUMATIC, NORMOCEPHALIC - Eye Exam Eye Exam: EOMI. absent: Scleral icterus - Respiratory Exam Respiratory Exam: NORMAL BREATHING PATTERN. absent: Respiratory Distress - GI/Abdominal Exam GI & Abdominal Exam: Soft, Tenderness (trace in suprapubic area). absent: Distended, Firm, Guarding, Rigid - Neurological Exam Neurological Exam: Alert, Awake - Skin Skin Exam: Dry, Warm Assessment and Plan - Assessment and Plan (Free Text) Assessment: 47M w/ diverticulitis and pericolonic phlegmon Plan: Ok for DC from a surgical standpoint Follow up with Dr. Spencer in 1-2 weeks Cont abx PO for 10 days Outpt colonoscopy per GI D/W Dr. Johanna Rivera PGY4
== END 2017-06-19 14:39 | disposition home or self-care (01) | DRG 182 ==
LOC: H.ER 16:15 → H.ERHOLD 17:43 → H.MEDSURG1 18:48
PROVIDERS: ADMIT Family Medicine; ATTEND Family Medicine
PROC: 3E0234Z Introduction of Serum, Toxoid and Vaccine into Muscle, Percutaneous Approach (ICD-10-PCS; principal; 2017-06-15)
DX: K57.20 Diverticulitis of large intestine with perforation and abscess without bleeding (principal); I10 Essential (primary) hypertension; Z23 Encounter for immunization

== ENCOUNTER 2018-01-28 04:19 | Emergency (ER) | payer MEDICAID ==
[2018-01-28 04:34] VITALS: BP 158/98; PULSE 58; RESP 16; TEMP 98; O2SAT 99
--- NOTE | 2018-01-28 04:55 | ED PDOC ---
HPI: Back Time Seen by Provider: 01/28/18 04:37 Chief Complaint (Nursing): Back Pain Chief Complaint (Provider): low back pain History Per: Patient History/Exam Limitations: no limitations Onset/Duration Of Symptoms: Days (2 weeks) Current Symptoms Are (Timing): Still Present Exacerbating Factor(s): Turning, Movement, Sitting Additional Complaint(s): 47 y/o male presents with low back pain x 2 weeks. Patient states pain started while he was bending down to pick something up off the floor, states as he was coming back up he felt something "pull". Patient reports pain with positional changes since then. PAtient seen by his primary doctor and prescribed Meloxicam with little improvement. Denies fever, nausea/vomiting, numbness/ weakness lower extremities, bowel/bladder incontinence. Past Medical History Reviewed: Historical Data, Nursing Documentation, Vital Signs Vital Signs: Last Vital Signs Temp 98.0 F 01/28/18 04:32 Pulse 58 L 01/28/18 04:32 Resp 16 01/28/18 04:32 BP 158/98 H 01/28/18 04:32 Pulse Ox 99 01/28/18 04:32 - Medical History PMH: HTN, Kidney Stones Denies: Chronic Kidney Disease - Surgical History Surgical History: No Surg Hx - Family History Family History: States: Hypertension - Home Medications Home Medications: Ambulatory Orders Medication Instructions Recorded Lisinopril 10 mg PO DAILY 10/30/14 Ciprofloxacin HCl [Cipro] 500 mg PO BID #20 tablet 06/19/17 metroNIDAZOLE [Flagyl] 500 mg PO TID 10 Days tab 06/19/17 Cyclobenzaprine [Cyclobenzaprine 10 mg PO BID PRN #14 01/28/18 HCl] Lidocaine 5% [Lidoderm] 1 patch TOP DAILY #7 patch 01/28/18 - Allergies Allergies/Adverse Reactions: Allergies Allergy/AdvReac Type Severity Reaction Status Date / Time No Known Allergies Allergy Verified 10/30/14 11:38 Review of Systems ROS Statement: Except As Marked, All Systems Reviewed And Found Negative Musculoskeletal: Positive for: Back Pain Physical Exam - Reviewed Nursing Documentation Reviewed: Yes Vital Signs Reviewed: Yes - Physical Exam Appears: Positive for: Well, Non-toxic, No Acute Distress Head Exam: Positive for: ATRAUMATIC, NORMAL INSPECTION, NORMOCEPHALIC Skin: Positive for: Normal Color ENT: Positive for: Normal ENT Inspection Cardiovascular/Chest: Positive for: Regular Rate, Rhythm Respiratory: Positive for: Normal Breath Sounds Gastrointestinal/Abdominal: Positive for: Normal Exam Back: Positive for: Vertebral Tenderness (lspine midline tenderness; no bony deformity, skin erythema noted), Decreased ROM (secondary to pain). Negative for: L CVA Tenderness, R CVA Tenderness, Muscle Spasm Extremity: Positive for: Normal ROM Neurologic/Psych: Positive for: Alert, Oriented - ECG O2 Sat by Pulse Oximetry: 99 - Other Rad xray lspine X-Ray: Viewed By Wy X-Ray Interpretation: no acute findings - Progress ED Course And Treament: xray, Toradol IM, flexeril PO On re-eval, patient reports improvement of pain. Patient educated on findings, discharged with rx flexeril, lidoderm patches Advised to continue Meloxicam as previously prescribed. Follow up PMD 2-3 days. Return precautions given Disposition - Clinical Impression Clinical Impression: Back strain - Patient ED Disposition Is Patient to be Admitted: No Counseled Patient/Family Regarding: Studies Performed, Diagnosis, Need For Followup, Rx Given - Disposition Disposition: Routine/Home Disposition Time: 05:46 Condition: IMPROVED Prescriptions: Cyclobenzaprine [Cyclobenzaprine HCl] 10 mg PO BID PRN #14 PRN Reason: Muscle Spasm Lidocaine 5% [Lidoderm] 1 patch TOP DAILY #7 patch Instructions: Low Back Pain in Adults Forms: [facility] (Amharic) Print Language: ICELANDIC
--- NOTE | 2018-01-28 10:06 | RAD ---
PROCEDURE: Radiographs of the Lumbar Spine. HISTORY: low back pain COMPARISON: 06/28/2014 FINDINGS: Please no for purposes of this report there are 6 non rib-bearing lumbar vertebrae present the lowest disc containing space will be considered L5-S1 and T12 will be considered transitional without ribs. BONES: No fracture noted. . No spondylolysis appreciated on these non oblique views. Anterior spondylotic ridging at L3 and L4 renoted this is most pronounced along the superior L4 endplate. L4 is 3 to 4 mm anterior the subluxed relative to L3. This could be due to ligamentous laxity and facet hypertrophic arthrosis. No change in this alignment based on 2014 images is appreciated. DISC SPACES: Disc space narrowing L3-4 -most notable. OTHER FINDINGS: None. IMPRESSION: No fracture. Please note transitional elements are considered and T12 for this report is considered transitional without ribs. Lumbar spondylosis and degenerative disc disease -findings most pronounced at the L3-4 level. L4 is anteriorly subluxed relative to L3- this is a stable finding since 2014.
== END 2018-01-28 05:54 | disposition home or self-care (01) ==
LOC: H.ER 04:19
DX: S39.012A Strain of muscle, fascia and tendon of lower back, initial encounter (principal); Z87.442 Personal history of urinary calculi; I10 Essential (primary) hypertension
CPT/HCPCS: 72100; 96372; 99282; J1885

== ENCOUNTER 2019-01-20 04:21 | Emergency (ER) | payer MEDICAID ==
[2019-01-20 04:38] VITALS: BP 166/89; PULSE 60; RESP 18; TEMP 98.4; O2SAT 99
[2019-01-20] MEDS ORDERED: Sodium Chloride 0.9% 1,000 ML IV STA (04:53)
[2019-01-20 05:30] LABS: BASO % 0.4 % (0.0-2.0); EOS # 0.1 K/uL (0.0-0.7); EOS % 2.3 % (0.0-4.0); LYMPH # 1.2 K/uL (1.0-4.3); LYMPH % 24.4 % (20.0-40.0); MEAN CELL VOLUME 94.5 fl (80.0-94.0); MEAN CORPUSCULAR HGB CONC 33.9 g/dL (33.0-37.0); MEAN PLATELET VOLUME 9.2 fl (7.2-11.7); MONO # 0.6 K/uL (0.0-0.8); MONO % 12.4 % (0.0-10.0); NEUT % 60.5 % (50.0-75.0); NRBC % 0.1 % (0.0-0.0); RBC 4.38 Mil/uL (4.40-5.90); RED CELL DISTRIBUTION WIDTH 13.2 % (11.5-14.5); URINE BILIRUBIN NEGATIVE (NEGATIVE); URINE BLOOD SMALL (NEGATIVE); URINE CLARITY CLEAR (Clear); URINE COLOR STRAW (YELLOW); URINE GLUCOSE (UA) NEG (NEGATIVE); URINE LEUKOCYTE ESTERASE NEG Leu/uL (Negative); URINE PROTEIN NEGATIVE (NEGATIVE); URINE UROBILINOGEN 0.2-1.0 mg/dL (0.2-1.0); WHITE BLOOD COUNT 4.9 K/uL (4.8-10.8)
[2019-01-20 05:38] LABS: ALB/GLOB RATIO 1.5 (1.0-2.1); ALBUMIN 4.4 g/dL (3.5-5.0); ALT/SGPT 29 U/L (21-72); AST/SGOT 31 U/L (17-59); BLOOD UREA NITROGEN 14 mg/dl (9-20); CALCIUM 8.8 mg/dL (8.4-10.2); GFR NON-AFRICAN AMERICAN > 60; LIPASE 82 U/L (23-300)
--- NOTE | 2019-01-20 06:46 | ED PDOC ---
HPI: Abdomen Time Seen by Provider: 01/20/19 04:38 Chief Complaint (Nursing): Abdominal Pain Chief Complaint (Provider): Abdominal Pain History Per: Patient History/Exam Limitations: no limitations Onset/Duration Of Symptoms: Days (x1) Current Symptoms Are (Timing): Still Present Additional Complaint(s): 48 y/o male with a PMHx of diverticular disease, kidney stones and HTn presents to the ED for evaluation of abdominal pain, onset one day ago. Patient reports of developing acute onset right flank pain yesterday morning that has progressively worsened. Otherwise, patient denies nausea, vomiting, diarrhea and fever. PMD: Jhon Payne Past Medical History Reviewed: Historical Data, Nursing Documentation, Vital Signs Vital Signs: Last Vital Signs Temp 98.4 F 01/20/19 04:35 Pulse 60 01/20/19 04:35 Resp 18 01/20/19 04:35 BP 166/89 H 01/20/19 04:35 Pulse Ox 99 01/20/19 04:35 Primary Care Provider: Jhon Payne - Medical History PMH: Diverticulitis, HTN, Kidney Stones, Chronic Kidney Disease Other PMH: DIVERTICULAR DISEASE - Surgical History Surgical History: No Surg Hx - Family History Family History: States: Hypertension - Social History Current smoker - smoking cessation education provided: No Alcohol: None Drugs: Denies - Home Medications Home Medications: Ambulatory Orders Medication Instructions Recorded Lisinopril 10 mg PO DAILY 10/30/14 Ciprofloxacin HCl [Cipro] 500 mg PO BID #20 tablet 06/19/17 metroNIDAZOLE [Flagyl] 500 mg PO TID 10 Days tab 06/19/17 Cyclobenzaprine [Cyclobenzaprine 10 mg PO BID PRN #14 01/28/18 HCl] Lidocaine 5% [Lidoderm] 1 patch TOP DAILY #7 patch 01/28/18 Tamsulosin [Flomax] 0.4 mg PO DAILY #10 cap 01/20/19 traMADol [Ultram] 50 mg PO Q6 PRN #8 tab 01/20/19 - Allergies Allergies/Adverse Reactions: Allergies Allergy/AdvReac Type Severity Reaction Status Date / Time No Known Allergies Allergy Verified 01/20/19 04:38 Review of Systems ROS Statement: Except As Marked, All Systems Reviewed And Found Negative Constitutional: Negative for: Fever Gastrointestinal: Positive for: Abdominal Pain. Negative for: Nausea, Vomiting, Diarrhea Physical Exam - Reviewed Nursing Documentation Reviewed: Yes Vital Signs Reviewed: Yes - Physical Exam Appears: Positive for: No Acute Distress Head Exam: Positive for: ATRAUMATIC, NORMOCEPHALIC Skin: Positive for: Normal Color, Warm, Dry Eye Exam: Positive for: Normal appearance, EOMI, PERRL ENT: Positive for: Normal ENT Inspection Neck: Positive for: Normal, Painless ROM, Supple Cardiovascular/Chest: Positive for: Regular Rate, Rhythm. Negative for: Murmur Respiratory: Positive for: Normal Breath Sounds. Negative for: Respiratory Distress Gastrointestinal/Abdominal: Positive for: Normal Exam, Soft. Negative for: Tenderness, Mass, Distended, Guarding, Rebound Extremity: Positive for: Normal ROM. Negative for: Pedal Edema, Deformity Neurological/Psych: Positive for: Awake, Alert, Oriented. Negative for: Motor/Sensory Deficits - Laboratory Results Result Diagrams: 01/20/19 05:10 01/20/19 05:10 Lab Results: Total Bilirubin 1.4 mg/dl (0.2-1.3) H 01/20/19 05:10 AST 31 U/L (17-59) 01/20/19 05:10 ALT 29 U/L (21-72) 01/20/19 05:10 Alkaline Phosphatase 74 U/L (38-126) 01/20/19 05:10 Total Protein 7.4 G/DL (6.3-8.2) 01/20/19 05:10 Albumin 4.4 g/dL (3.5-5.0) 01/20/19 05:10 Globulin 2.9 gm/dL (2.2-3.9) 01/20/19 05:10 Albumin/Globulin Ratio 1.5 (1.0-2.1) 01/20/19 05:10 Lipase 82 U/L (23-300) 01/20/19 05:10 Urine Color Straw (YELLOW) 01/20/19 05:10 Urine Clarity Clear (Clear) 01/20/19 05:10 Urine pH 7.0 (5.0-8.0) 01/20/19 05:10 Ur Specific [place] 1.009 (1.003-1.030) 01/20/19 05:10 Urine Protein Negative mg/dL (NEGATIVE) 01/20/19 05:10 Urine Glucose (UA) Neg mg/dL (NEGATIVE) 01/20/19 05:10 Urine Ketones Trace mg/dL (NEGATIVE) 01/20/19 05:10 Urine Blood Small (NEGATIVE) 01/20/19 05:10 Urine Nitrate Negative (NEGATIVE) 01/20/19 05:10 Urine Bilirubin Negative (NEGATIVE) 01/20/19 05:10 Urine Urobilinogen 0.2-1.0 mg/dL (0.2-1.0) 01/20/19 05:10 Ur Leukocyte Esterase Neg [place]/uL (Negative) 01/20/19 05:10 Urine RBC (Auto) 4 /hpf (0-3) H 01/20/19 05:10 Urine Microscopic WBC 1 /hpf (0-5) 01/20/19 05:10 - ECG O2 Sat by Pulse Oximetry: 99 (ra) Pulse Ox Interpretation: Normal Medical Decision Making Medical Decision Making: Time: 447 Impression: 48 y/o male with right flank pain Plan: -- CT Abd/Pelvis w/o PO or IV contrast -- CMP -- Lact Acid, Plasma -- Lipase -- ED Urine Dipstick -- CBC with Differentials -- Sodium Chloride IV 1000 mls/hr -- Toradol 30 mg IV -- Heplock Insertion -- Urinalysis CT SCAN OF THE ABDOMEN AND PELVIS WITHOUT ORAL OR IV CONTRAST. CLINICAL INDICATION: Renal colic. TECHNIQUE: Axial and reformatted sagittal and coronal images of the abdomen pelvis obtained without IV contrast administration. COMPARISON: 06/16/2017. FINDINGS: Mild diffuse thickening of the bladder. Mild fullness of the left collecting system. Mild prostatomegaly. Scattered prostatic calcifications. Mild cardiomegaly. The visualized lung bases are unremarkable. Normal unenhanced liver. Normal gallbladder and extrahepatic biliary system. Normal unenhanced spleen. Normal pancreas. Normal bilateral adrenal glands. Normal size of the right kidney. There is no right renal mass. There are no right renal calculi. There is no right hydronephrosis. Normal visualized right ureter. Normal size of the left kidney. There is no left renal mass. There are no left renal calculi. There is no left hydronephrosis. Normal visualized left ureter. Normal visualized stomach. Normal small intestine. Uncomplicated diverticulosis of the colon. The appendix is visualized and appears normal. There is no demonstrated peritoneal fluid. Calcified atheromatous plaques of the abdominal aorta. Normal inferior vena cava. Normal retroperitoneum. There is no pelvic mass lesion or lymphadenopathy. There is no pelvic fluid. Bilateral fat containing inguinal hernias without incarceration. Moderate diffuse spondylosis. IMPRESSION: Mild diffuse thickening of the bladder. Mild fullness of the left collecting system. Recent passage of a calculus versus an ascending urinary tract infection. Mild prostatomegaly. Scattered prostatic calcifications. Electronically signed on January 20, 2019 6:35:09 AM EDT by: Melva Mendoza M.D., Certified by [facility], K, Neuroradiology Time: 636 -- Patient is stable for discharge home with a diagnosis of renal calculus. Patientprovided limited supply of Ultram and given detailed instructions on opioid risks and responsible use of narcotics. Scribe Attestation: Documented by Ana Lilia Marsh, acting as a scribe for Jose Fong MD. Provider Scribe Attestation: All medical record entries made by the Scribe were at my direction and personally dictated by me. I have reviewed the chart and agree that the record a ccurately reflects my personal performance of the history, physical exam, medical decision making, and the department course for this patient. I have also personally directed, reviewed, and agree with the discharge instructions and disposition. Disposition - Clinical Impression Clinical Impression: Ureteral calculus, Kidney stones - Patient ED Disposition Is Patient to be Admitted: No Counseled Patient/Family Regarding: Studies Performed, Diagnosis, Need For Followup, Rx Given - Disposition Referrals: Jhon Payne MD [Primary Care Provider] - Disposition: Routine/Home Disposition Time: 06:30 Condition: STABLE Prescriptions: Tamsulosin [Flomax] 0.4 mg PO DAILY #10 cap traMADol [Ultram] 50 mg PO Q6 PRN #8 tab PRN Reason: flank pain Instructions: Kidney Stones in Adults, Taking Narcotics Safely Forms: [facility] [employer] (Vietnamese) Print Language: DIVEHI
--- NOTE | 2019-01-20 10:50 | CT ---
Date of service: 01/20/2019 PROCEDURE: CT Abdomen and Pelvis without intravenous contrast HISTORY: Abdominal pain, renal colic. COMPARISON: 06/15/2017 and 06/16/2017. TECHNIQUE: Unenhanced. Neither IV nor oral contrast administered Radiation dose: Total exam DLP = 570.75 mGy-cm. This CT exam was performed using one or more of the following dose reduction techniques: Automated exposure control, adjustment of the mA and/or kV according to patient size, and/or use of iterative reconstruction technique. FINDINGS: LOWER THORAX: Unremarkable. LIVER: Unremarkable. No gross lesion or ductal dilatation. GALLBLADDER AND BILE DUCTS: Unremarkable. PANCREAS: Unremarkable. No gross lesion or ductal dilatation. SPLEEN: Unremarkable. ADRENALS: Unremarkable. No mass. KIDNEYS AND URETERS: Unremarkable. No hydronephrosis. No solid mass. VASCULATURE: Unremarkable. No aortic aneurysm. No atherosclerotic calcification or mural plaque present. BOWEL: Diverticulosis without an acute inflammatory component or other associated pathologic process. Sigmoid diverticulitis parent previously has resolved. Constipation without fecal impaction or obstruction. APPENDIX: Unremarkable. Normal appendix. PERITONEUM: Unremarkable. No free fluid. No free air. LYMPH NODES: Unremarkable. No enlarged lymph nodes. BLADDER: Unremarkable. REPRODUCTIVE: Unremarkable. BONES: No acute fracture. OTHER FINDINGS: Bilateral fat containing inguinal hernias. IMPRESSION: No significant or acute findings to account for/ related to the clinical presentation. Additional benign and/or incidental findings described above.
== END 2019-01-20 06:53 | disposition home or self-care (01) ==
LOC: H.ER 04:21
DX: N20.1 Calculus of ureter (principal); N20.0 Calculus of kidney; Z87.442 Personal history of urinary calculi; N40.0 Benign prostatic hyperplasia without lower urinary tract symptoms; N18.9 Chronic kidney disease, unspecified; I12.9 Hypertensive chronic kidney disease with stage 1 through stage 4 chronic kidney disease, or unspecified chronic kidney disease
CPT/HCPCS: 74176; 80053; 81003; 83605; 83690; 85025; 96360; 99283; J1885; J7030